=== PATIENT | male | born 1990 | race Caucasian/White ===

== ENCOUNTER 2025-01-15 21:33 | Emergency (ER) | payer OTHER ==
--- OUTSIDE RECORDS SUMMARY | 2025-01-15 21:37 | XMS REPORT | Continuity of Care Document ---
Author Name Unknown Address [address] [facility] [address] [place] [address] [facility] Address [address] [facility] [place] [address] Care Team Providers Care Registry Nurse Name Role Phone Tj Oneilal Primary Care Physician Unavailab Surya Paula Attending Clinician Unavailable Doctor Unassigned, Frederika Attending Clinician U DONY Enriquez Attending Clinician Lilly Gray MD Attending Clinician Dony Botello MD Attending Clinician Doctor Unassigned, Frederika Attending Clinician U Verito Vázquez MD Attending Clinician [phone] VERITO GARCIA Attending Clinician Unavailable EDDIE POWELL Attending Clinician UnavailEddie Zuniga MD Attending Clinician [phone] Payers Payer Name Policy Type Policy Number Effective Date Expirati on Date Source [facility] 53 [id number] 2023 00:00:00 [facility] Problems Condition Name Condition Details Condition Category Status Onset Date Resolution Date Last Treatment Date Treating Clinician Comments Source [id number] Tobacco use disorder, continuous Problem [facility] [id number] Type 2 diabetes mellitus with hyperglyce anoop, without long-term current use of insulin Problem [facility] [id number] Migraine without aura and without status migrainosu s, not intractabl e Problem [facility] [id number] Depression with anxiety Problem [facility] [id number] Body mass index [BMI] 32.0-32.9, adult Problem [facility] [id number] Essential (primary) hypertensi on Problem [facility] [id number] Tourette syndrome Problem [facility] [id number] Other obesity due to excess calories Problem [facility] [id number] Intellectu al disability Problem [facility] [id number] Mixed hyperlipid emia Problem [facility] Allergies, Adverse Reactions, Alerts Allergy Name Allergy Type Status Severity Reaction(s) Onset Date Inactive Date Treating Clinician Comments Source NO KNOWN ALLERGIE S Drug Class Active [facility] Social History Social Habit Start Date Stop Date Quantity Comments Source History of Tobacco Use Current Smoker [facility] Sexual orientation U [facility] History of Social function 2024-01-05 00:00:00 2024-01-05 00:00:00 [facility] Sex assigned at 1990 00:00:00 1990 00:00:00 [facility] Smoking Status Start Date Stop Date Source Tobacco smoking consumption unknown [facility] Current Smoker 2024-12-30 00:00:00 [facility] Medications Ordered Medication Name Filled Medication Name Start Date Stop Date Current Medication? Ordering Clinician Indication Dosage Frequency Signature (SIG) Comments Components Source Triamcinolo ne Acetonide 0.1 % Triamcinolo ne Acetonide 0.1 % 18 00:00: 00 No 1{appli cation} BID Triamcinol one Acetonide 0.1 % Simvastatin 20 MG Simvastatin 20 MG No 1{table t_in_th e_eveni ng} QD Simvastati n 20 MG metFORMIN HCl 1000 MG metFORMIN HCl 1000 MG No 1{table t_with_ a_meal} BID metFORMIN HCl 1000 MG Lisinopril 5 MG Lisinopril 5 MG No 1{table t} QD Lisinopril 5 MG Sertraline HCl 100 MG Sertraline HCl 100 MG No 1{table t} QD Sertraline HCl 100 MG Immunizations Ordered Immunization Name Filled Immunization Name Date Status Comments Source Boostrix (Tdap) Boostrix (Tdap) 2022-06-20 14:56:00 Completed [facility] Boostrix (Tdap) Boostrix (Tdap) 2022-06-20 14:56:00 Completed [facility] Boostrix (Tdap) Boostrix (Tdap) 2022-06-20 14:56:00 Completed [facility] Flucelvax - single dose syringe Flucelvax - single dose syringe 2022-06-20 14:55:00 Completed [facility] Flucelvax - single dose syringe Flucelvax - single dose syringe 2022-06-20 14:55:00 Completed [facility] Flucelvax - single dose syringe Flucelvax - single dose syringe 2022-06-20 14:55:00 Completed [facility] Flucelvax - multidose vial Flucelvax - multidose vial 2021-07-15 13:58:00 Completed [facility] Flucelvax - multidose vial Flucelvax - multidose vial 2021-07-15 13:58:00 Completed [facility] Flucelvax - multidose vial Flucelvax - multidose vial 2021-07-15 13:58:00 Completed [facility] Flucelvax - multidose vial Flucelvax - multidose vial Unknown Completed [facility] Flucelvax - single dose syringe Flucelvax - single dose syringe Unknown Completed [facility] Boostrix (Tdap) Boostrix (Tdap) Unknown Completed [facility] Flucelvax - multidose vial Flucelvax - multidose vial Unknown Completed [facility] Flucelvax - single dose syringe Flucelvax - single dose syringe Unknown Completed [facility] Boostrix (Tdap) Boostrix (Tdap) Unknown Completed [facility] Flucelvax - multidose vial Flucelvax - multidose vial Unknown Completed [facility] Flucelvax - single dose syringe Flucelvax - single dose syringe Unknown Completed [facility] Boostrix (Tdap) Boostrix (Tdap) Unknown Completed [facility] Flucelvax - multidose vial Flucelvax - multidose vial Unknown Completed [facility] Flucelvax - single dose syringe Flucelvax - single dose syringe Unknown Completed [facility] Boostrix (Tdap) Boostrix (Tdap) Unknown Completed [facility] Flucelvax - multidose vial Flucelvax - multidose vial Unknown Completed [facility] Flucelvax - single dose syringe Flucelvax - single dose syringe Unknown Completed [facility] Boostrix (Tdap) Boostrix (Tdap) Unknown Completed [facility] Flucelvax - multidose vial Flucelvax - multidose vial Unknown Completed [facility] Flucelvax - single dose syringe Flucelvax - single dose syringe Unknown Completed [facility] Boostrix (Tdap) Boostrix (Tdap) Unknown Completed [facility] Flucelvax (ccIIV4) - MDV - 0.5mL Flucelvax (ccIIV4) - MDV - 0.5mL Unknown Completed [facility] Flucelvax (ccIIV4) - SDS - 0.5mL Flucelvax (ccIIV4) - SDS - 0.5mL Unknown Completed [facility] Boostrix (Tdap) Boostrix (Tdap) Unknown Completed [facility] Flucelvax (ccIIV4) - MDV - 0.5mL Flucelvax (ccIIV4) - MDV - 0.5mL Unknown Completed [facility] Flucelvax (ccIIV4) - SDS - 0.5mL Flucelvax (ccIIV4) - SDS - 0.5mL Unknown Completed [facility] Boostrix (Tdap) Boostrix (Tdap) Unknown Completed [facility] Flucelvax (ccIIV4) - MDV - 0.5mL Flucelvax (ccIIV4) - MDV - 0.5mL Unknown Completed [facility] Flucelvax (ccIIV4) - SDS - 0.5mL Flucelvax (ccIIV4) - SDS - 0.5mL Unknown Completed [facility] Boostrix (Tdap) Boostrix (Tdap) Unknown Completed [facility] Flucelvax (ccIIV4) - MDV - 0.5mL Flucelvax (ccIIV4) - MDV - 0.5mL Unknown Completed [facility] Flucelvax (ccIIV4) - SDS - 0.5mL Flucelvax (ccIIV4) - SDS - 0.5mL Unknown Completed [facility] Boostrix (Tdap) Boostrix (Tdap) Unknown Completed [facility] Flucelvax (ccIIV4) - MDV - 0.5mL Flucelvax (ccIIV4) - MDV - 0.5mL Unknown Completed [facility] Flucelvax (ccIIV4) - SDS - 0.5mL Flucelvax (ccIIV4) - SDS - 0.5mL Unknown Completed [facility] Boostrix (Tdap) Boostrix (Tdap) Unknown Completed [facility] Flucelvax (ccIIV4) - MDV - 0.5mL Flucelvax (ccIIV4) - MDV - 0.5mL Unknown Completed [facility] Flucelvax (ccIIV4) - SDS - 0.5mL Flucelvax (ccIIV4) - SDS - 0.5mL Unknown Completed [facility] Boostrix (Tdap) Boostrix (Tdap) Unknown Completed [facility] Flucelvax (ccIIV4) - MDV - 0.5mL Flucelvax (ccIIV4) - MDV - 0.5mL Unknown Completed [facility] Flucelvax (ccIIV4) - SDS - 0.5mL Flucelvax (ccIIV4) - SDS - 0.5mL Unknown Completed [facility] Boostrix (Tdap) Boostrix (Tdap) Unknown Completed [facility] Fluarix (IIV3) - SDS - 0.5mL Fluarix (IIV3) - SDS - 0.5mL Unknown Completed [facility] Vital Signs Vital Name Observation Time Observation Value Comments S ource height 2024-08-24 15:00:00 68.5 [in_i] Comm on [facility] weight 2024-08-24 15:00:00 237.2 [lb_av] Co mmon [facility] temperature 2024-08-24 15:00:00 96.7 [degF] Com mon [facility] bmi 2024-08-24 15:00:00 35.54 kg/m2 Comm on [facility] oximetry 2024-08-24 15:00:00 98 % Commo n [facility] respiratory rate 2024-08-24 15:00:00 18 /min [facility] blood pressure systolic 2024-08-24 15:00:00 136 mm[Hg] [facility] blood pressure diastolic 2024-08-24 15:00:00 82 mm[Hg] [facility] height 2024-04-20 15:40:00 68.5 [in_i] Comm on [facility] weight 2024-04-20 15:40:00 233 [lb_av] Comm on [facility] temperature 2024-04-20 15:40:00 97.3 [degF] Com mon [facility] bmi 2024-04-20 15:40:00 34.91 kg/m2 Comm on [facility] oximetry 2024-04-20 15:40:00 97 % Commo n [facility] blood pressure systolic 2024-04-20 15:40:00 132 mm[Hg] [facility] blood pressure diastolic 2024-04-20 15:40:00 78 mm[Hg] [facility] height 2024-04-20 15:40:00 68.5 [in_i] Comm on [facility] weight 2024-04-20 15:40:00 233 [lb_av] Comm on [facility] temperature 2024-04-20 15:40:00 97.3 [degF] Com mon [facility] bmi 2024-04-20 15:40:00 34.91 kg/m2 Comm on [facility] oximetry 2024-04-20 15:40:00 97 % Commo n [facility] blood pressure systolic 2024-04-20 15:40:00 132 mm[Hg] [facility] blood pressure diastolic 2024-04-20 15:40:00 78 mm[Hg] [facility] Body height 2024-03-11 16:03:00 180.3 cm [facility] Body weight 2024-03-11 16:03:00 102.059 kg [facility] BMI 2024-03-11 16:03:00 31.38 kg/m2 [facility] Body height 2023-12-16 19:54:00 180.3 cm [facility] height 2023-12-11 15:20:00 68.5 [in_i] Comm on [facility] weight 2023-12-11 15:20:00 235.0 [lb_av] Co mmon [facility] temperature 2023-12-11 15:20:00 97.8 [degF] Com mon [facility] bmi 2023-12-11 15:20:00 35.21 kg/m2 Comm on [facility] oximetry 2023-12-11 15:20:00 97 % Commo n [facility] respiratory rate 2023-12-11 15:20:00 18 /min [facility] blood pressure systolic 2023-12-11 15:20:00 128 mm[Hg] [facility] blood pressure diastolic 2023-12-11 15:20:00 72 mm[Hg] [facility] height 2023-08-12 08:20:00 68.5 [in_i] Comm on [facility] weight 2023-08-12 08:20:00 230 [lb_av] Comm on [facility] bmi 2023-08-12 08:20:00 34.46 kg/m2 Comm on [facility] blood pressure systolic 2023-08-12 08:20:00 129 mm[Hg] [facility] blood pressure diastolic 2023-08-12 08:20:00 70 mm[Hg] [facility] height 2023-06-02 08:20:00 68.5 [in_i] Comm on [facility] weight 2023-06-02 08:20:00 231.6 [lb_av] Co mmon [facility] temperature 2023-06-02 08:20:00 98.0 [degF] Com mon [facility] bmi 2023-06-02 08:20:00 34.7 kg/m2 Commo n [facility] oximetry 2023-06-02 08:20:00 97 % Commo n [facility] respiratory rate 2023-06-02 08:20:00 18 /min [facility] blood pressure systolic 2023-06-02 08:20:00 109 mm[Hg] [facility] blood pressure diastolic 2023-06-02 08:20:00 66 mm[Hg] [facility] height 2023-03-25 16:20:00 68.5 [in_i] Comm on [facility] weight 2023-03-25 16:20:00 224.0 [lb_av] Co mmon [facility] temperature 2023-03-25 16:20:00 97.3 [degF] Com mon [facility] bmi 2023-03-25 16:20:00 33.56 kg/m2 Comm on [facility] oximetry 2023-03-25 16:20:00 98 % Commo n [facility] respiratory rate 2023-03-25 16:20:00 18 /min [facility] blood pressure systolic 2023-03-25 16:20:00 125 mm[Hg] [facility] blood pressure diastolic 2023-03-25 16:20:00 69 mm[Hg] [facility] height 2023-03-06 13:00:00 68.5 [in_i] Comm on [facility] weight 2023-03-06 13:00:00 230 [lb_av] Comm on [facility] temperature 2023-03-06 13:00:00 98 [degF] Comm on [facility] bmi 2023-03-06 13:00:00 34.46 kg/m2 Comm on [facility] blood pressure systolic 2023-03-06 13:00:00 132 mm[Hg] [facility] blood pressure diastolic 2023-03-06 13:00:00 72 mm[Hg] [facility] height 2022-12-24 16:10:00 68.5 [in_i] Comm on [facility] weight 2022-12-24 16:10:00 229.8 [lb_av] Co on [facility] temperature 2022-12-24 16:10:00 96.6 [degF] Com [facility] bmi 2022-12-24 16:10:00 34.43 kg/m2 Comm on [facility] oximetry 2022-12-24 16:10:00 96 % Commo n [facility] respiratory rate 2022-12-24 16:10:00 16 /min Common [facility] blood pressure systolic 2022-12-24 16:10:00 130 mm[Hg] [facility] blood pressure diastolic 2022-12-24 16:10:00 87 mm[Hg] [facility] height 2022-09-04 15:30:00 68.5 [in_i] Comm on [facility] weight 2022-09-04 15:30:00 234.2 [lb_av] Co on [facility] temperature 2022-09-04 15:30:00 97.2 [degF] Com [facility] bmi 2022-09-04 15:30:00 35.09 kg/m2 Comm on [facility] oximetry 2022-09-04 15:30:00 96 % Commo n [facility] respiratory rate 2022-09-04 15:30:00 17 /min Common [facility] blood pressure systolic 2022-09-04 15:30:00 129 mm[Hg] [facility] blood pressure diastolic 2022-09-04 15:30:00 69 mm[Hg] [facility] height 2022-06-20 15:10:00 68.5 [in_i] Comm on [facility] weight 2022-06-20 15:10:00 232 [lb_av] Comm on [facility] temperature 2022-06-20 15:10:00 97.7 [degF] Com mon [facility] bmi 2022-06-20 15:10:00 34.76 kg/m2 Comm on [facility] oximetry 2022-06-20 15:10:00 96 % Commo n [facility] respiratory rate 2022-06-20 15:10:00 18 /min Common [facility] blood pressure systolic 2022-06-20 15:10:00 121 mm[Hg] [facility] blood pressure diastolic 2022-06-20 15:10:00 76 mm[Hg] [facility] height 2022-04-18 13:30:00 70.50 [in_i] Com [facility] weight 2022-04-18 13:30:00 232.3 [lb_av] Co mmon [facility] temperature 2022-04-18 13:30:00 98.1 [degF] Com mon [facility] bmi 2022-04-18 13:30:00 32.86 kg/m2 Comm on [facility] oximetry 2022-04-18 13:30:00 92 % Commo n [facility] respiratory rate 2022-04-18 13:30:00 16 /min [facility] blood pressure systolic 2022-04-18 13:30:00 118 mm[Hg] [facility] blood pressure diastolic 2022-04-18 13:30:00 82 mm[Hg] [facility] Procedures Procedure Date / Time Performed Performing Clinicia n Source REFERRAL- REQUEST/RESPONSE 2023-12-16 00:31:32 Doctor Unassigned, Frederika [facility] Encounters Start Date/Time End Date/Time Encounter Type Admission Type Attending [facility] Care Facility Care Department Encounter ID Source 2023-12-10 14:58:00 Outpatient Surya Oneil [facility] [id number] [facility] 2023-08-11 14:47:01 Outpatient Oneil, Surya [facility] [id number] [facility] 2023-05-30 12:01:00 Outpatient Oneil, Surya [facility] [id number] [facility] 2023-01-01 15:14:01 Outpatient Oneil, Surya [facility] [id number] [facility] 2022-12-24 15:57:00 Outpatient Oneil, Surya [facility]C [facility] [id number] [facility] 2022-09-03 14:50:02 Outpatient Oneil, Surya [facility] [id number] [facility] 2022-09-02 10:21:03 Outpatient Oneil, Surya [facility] [id number] [facility] 2022-08-29 10:31:05 Outpatient Oneil, Surya [facility] [id number] [facility] 2022-06-28 10:01:01 Outpatient Oneil, Surya [facility] [id number] [facility] 2022-06-21 15:40:04 Outpatient Oneil, Surya [facility] [id number] [facility] 2022-04-19 10:44:03 Outpatient Oneil, Surya [facility] [id number] [facility] 2022-04-18 13:06:03 Outpatient Oneil, Surya [facility]C [facility] [id number] [facility] 2025-01-03 00:00:00 2025-01-03 00:00:00 (TEL) STLMLC STLMLC [id number] [facility] 2023-12-15 00:00:00 2024-10-30 02:31:08 Orders Only Doctor Unassigned, Frederika Doctor Unassigned, Frederika [facility] 1.0.114 350.1.13.10 [id number] [id number] [facility] 2024-08-24 00:00:00 2024-08-24 00:00:00 OFFICE VISIT ESTAB PT LEVEL 4 [facility] [id number] [facility] 2024-04-20 00:00:00 2024-04-20 00:00:00 OFFICE VISIT ESTAB PT LEVEL 4 [facility] [id number] [facility] 2024-03-11 11:15:00 2024-03-11 11:15:17 Outpatient R DONY BOTELLO [facility] [id number] [facility] 2024-03-11 11:15:00 2024-03-11 11:15:17 Office Visit Lilly Sanders Ayezel [facility] 1.114 350.1.13.10 [id number] [id number] [facility] 2023-12-22 00:00:00 2024-01-24 18:10:12 Patient Secure Msg Doctor Unassigned, Frederika [facility] 1..114 350.1.13.10 [id number] [id number] [facility] 2023-12-23 00:00:00 2024-01-24 18:08:18 Patient Secure Msg Doctor Unassigned, Frederika [facility] 1.0.114 350.1.13.10 4.2.7.2.686 [id number] [facility] 2024-01-05 09:00:00 2024-01-05 09:53:48 Office Visit Lilly Sanders Erica [facility] 1.0.114 350.1.13.10 4.2.7.2.686 [id number] [facility] 2024-01-05 09:00:00 2024-01-05 09:53:48 Outpatient VERITO PEPE [facility] [id number] [facility] 2023-12-23 00:00:00 2023-12-23 00:00:00 Telephone Lilly Sanders [facility] 1.840.114 350.1.13.10 4.2.7.2.686 [id number] [facility] 2023-12-16 14:45:00 2023-12-16 15:18:23 Outpatient EDDIE BECK [facility] [id number] [facility] 2023-12-16 14:45:00 2023-12-16 15:18:23 Office Visit Lilly Sanders Brandon P [facility] 1..840.114 350.1.13.10 4.2.7.2.686 [id number] [facility] 2023-12-11 00:00:00 2023-12-11 00:00:00 OFFICE VISIT ESTAB PT LEVEL [id number] [facility] 2023-12-11 00:00:00 2023-12-11 00:00:00 (TEL) STLMLC STLMLC [id number] [facility] 2023-10-15 00:00:00 2023-10-15 00:00:00 (TEL) [facility]LMLC STLMLC [id number] [facility] 2023-08-12 00:00:00 2023-08-12 00:00:00 OFFICE VISIT ESTAB PT LEVEL [id number] [facility] 2023-06-02 00:00:00 2023-06-02 00:00:00 OFFICE VISIT ESTAB PT LEVEL 4 [facility]LMLC STLMLC [id number] [facility] 2023-05-26 00:00:00 2023-05-26 00:00:00 (TEL) STLMLC STLMLC [id number] [facility] 2023-03-25 00:00:00 2023-03-25 00:00:00 OFFICE VISIT ESTAB PT LEVEL 4 [facility]LMLC STLMLC [id number] [facility] 2023-03-06 00:00:00 2023-03-06 00:00:00 (TEL) STLMLC STLMLC [id number] [facility] 2023-03-06 00:00:00 2023-03-06 00:00:00 OFFICE VISIT ESTAB PT LEVEL 4 STLMLC STLMLC [id number] [facility] 2023-01-14 00:00:00 2023-01-14 00:00:00 (TEL) STLMLC STLMLC [id number] [facility] 2023-01-01 00:00:00 2023-01-01 00:00:00 (TEL) STLMLC STLMLC [id number] [facility] 2022-12-24 00:00:00 2022-12-24 00:00:00 OFFICE VISIT ESTAB PT LEVEL 4 [facility]LMLC STLMLC [id number] [facility] 2022-09-04 00:00:00 2022-09-04 00:00:00 OFFICE VISIT ESTAB PT LEVEL 4 [facility]LMLC STLMLC [id number] [facility] 2022-06-20 00:00:00 2022-06-20 00:00:00 (WELLNESS) Wellness Visit STLMLC STLMLC [id number] [facility] 2022-04-18 00:00:00 2022-04-18 00:00:00 OFFICE VISIT NEW PT LEVEL 4 STLMLC STLMLC [id number] [facility] Results Test Description Test Time Test Comments Results Result Co mments Source CBC W/AUTO [id number] 00:00:00* Test Item Value Reference Range Interpretation Comme nts NUCLEATED RBCS (test code = 22339-9) 0.0 /100 WBC'S See_Comment [Automated messa ge] The system which generated this result transmitted reference range: 0.0 /100 WBC'S. The reference range was not used to interpret this result as normal/abnormal. ABSOLUTE EOSINOPHILS (test code = 51214-3) 0.25 K/UL See_Comment [Automated messa ge] The system which generated this result transmitted reference range: 0.00-0.50 K/UL. The reference range was not used to interpret this result as normal/abnormal. ABSOLUTE LYMPHOCYTES (test code = 05955-5) 2.18 K/UL See_Comment [Automated messa ge] The system which generated this result transmitted reference range: 1.00-4.00 K/UL. The reference range was not used to interpret this result as normal/abnormal. ABSOLUTE MONOCYTES (test code = 12139-6) 0.55 K/UL See_Comment [Automated messa ge] The system which generated this result transmitted reference range: 0.20-1.00 K/UL. The reference range was not used to interpret this result as normal/abnormal. ABSOLUTE NEUTROPHILS (test code = 41252-6) 5.65 K/UL See_Comment [Automated messa ge] The system which generated this result transmitted reference range: 1.50-7.50 K/UL. The reference range was not used to interpret this result as normal/abnormal. BASOPHILS (test code = 53924-6) 0.7 % EOSINOPHILS (test code = 83219-0) 2.9 % HEMATOCRIT (test code = 52334-2) 43.6 % See_Comment [Automated messa ge] The system which generated this result transmitted reference range: 40.0-51.0 %. The reference range was not used to interpret this result as normal/abnormal. HEMOGLOBIN (test code = 718-7) 14.5 G/DL See_Comment [Automated messa ge] The system which generated this result transmitted reference range: 13.5-17.0 G/DL. The reference range was not used to interpret this result as normal/abnormal. LYMPHOCYTES (test code = 70621-3) 24.9 % MCH (test code = 07188-6) 28.9 PG See_Comment [Automated messa ge] The system which generated this result transmitted reference range: 25.0-33.0 PG. The reference range was not used to interpret this result as normal/abnormal. MCHC (test code = 18234-9) 33.3 G/DL See_Comment [Automated messa ge] The system which generated this result transmitted reference range: 31.0-36.0 G/DL. The reference range was not used to interpret this result as normal/abnormal. MCV (test code = 16300-8) 87.0 fL See_Comment [Automated messa ge] The system which generated this result transmitted reference range: 80.0-99.0 fL. The reference range was not used to interpret this result as normal/abnormal. MONOCYTES (test code = 87165-1) 6.3 % NEUTROPHILS (test code = 53317-5) 64.3 % PLATELET COUNT (test code = 17334-8) 196 K/UL See_Comment [Automated messa ge] The system which generated this result transmitted reference range: 130-400 K/UL. The reference range was not used to interpret this result as normal/abnormal. RBC (test code = 96061-6) 5.01 M/UL See_Comment [Automated messa ge] The system which generated this result transmitted reference range: 4.50-6.10 M/UL. The reference range was not used to interpret this result as normal/abnormal. RDW (test code = 64112-6) 13.3 % See_Comment [Automated messa ge] The system which generated this result transmitted reference range: 11.5-15.0 %. The reference range was not used to interpret this result as normal/abnormal. WBC (test code = 41975-9) 8.8 K/UL See_Comment [Automated messa ge] The system which generated this result transmitted reference range: 3.5-11.0 K/UL. The reference range was not used to interpret this result as normal/abnormal. REFERRAL- REQUEST/[id number] 00:31:32Ordered by an unspecified provider. [facility] W/AUTO [id number] 00:00:00* Test Item Value Reference Range Interpretation Comme nts NUCLEATED RBCS (test code = 72030-5) 0.0 /100 WBC'S See_Comment [Automated messa ge] The system which generated this result transmitted reference range: 0.0 /100 WBC'S. The reference range was not used to interpret this result as normal/abnormal. ABSOLUTE EOSINOPHILS (test code = 16494-3) 0.20 K/UL See_Comment [Automated messa ge] The system which generated this result transmitted reference range: 0.00-0.50 K/UL. The reference range was not used to interpret this result as normal/abnormal. ABSOLUTE LYMPHOCYTES (test code = 89614-9) 1.65 K/UL See_Comment [Automated messa ge] The system which generated this result transmitted reference range: 1.00-4.00 K/UL. The reference range was not used to interpret this result as normal/abnormal. ABSOLUTE MONOCYTES (test code = 79377-9) 0.49 K/UL See_Comment [Automated messa ge] The system which generated this result transmitted reference range: 0.20-1.00 K/UL. The reference range was not used to interpret this result as normal/abnormal. ABSOLUTE NEUTROPHILS (test code = 92885-2) 6.01 K/UL See_Comment [Automated messa ge] The system which generated this result transmitted reference range: 1.50-7.50 K/UL. The reference range was not used to interpret this result as normal/abnormal. BASOPHILS (test code = 80806-7) 0.5 % EOSINOPHILS (test code = 25258-4) 2.4 % HEMATOCRIT (test code = 85320-8) 44.3 % See_Comment [Automated messa ge] The system which generated this result transmitted reference range: 40.0-51.0 %. The reference range was not used to interpret this result as normal/abnormal. HEMOGLOBIN (test code = 718-7) 14.8 G/DL See_Comment [Automated messa ge] The system which generated this result transmitted reference range: 13.5-17.0 G/DL. The reference range was not used to interpret this result as normal/abnormal. LYMPHOCYTES (test code = 58180-0) 19.5 % MCH (test code = 64650-0) 29.8 PG See_Comment [Automated messa ge] The system which generated this result transmitted reference range: 25.0-33.0 PG. The reference range was not used to interpret this result as normal/abnormal. MCHC (test code = 47822-2) 33.4 G/DL See_Comment [Automated messa ge] The system which generated this result transmitted reference range: 31.0-36.0 G/DL. The reference range was not used to interpret this result as normal/abnormal. MCV (test code = 68856-5) 89.3 fL See_Comment [Automated messa ge] The system which generated this result transmitted reference range: 80.0-99.0 fL. The reference range was not used to interpret this result as normal/abnormal. MONOCYTES (test code = 65345-1) 5.8 % NEUTROPHILS (test code = 01842-4) 70.9 % PLATELET COUNT (test code = 17444-8) 190 K/UL See_Comment [Automated messa ge] The system which generated this result transmitted reference range: 130-400 K/UL. The reference range was not used to interpret this result as normal/abnormal. RBC (test code = 31619-5) 4.96 M/UL See_Comment [Automated messa ge] The system which generated this result transmitted reference range: 4.50-6.10 M/UL. The reference range was not used to interpret this result as normal/abnormal. RDW (test code = 20566-3) 13.0 % See_Comment [Automated messa ge] The system which generated this result transmitted reference range: 11.5-15.0 %. The reference range was not used to interpret this result as normal/abnormal. WBC (test code = 76683-3) 8.5 K/UL See_Comment [Automated messa ge] The system which generated this result transmitted reference range: 3.5-11.0 K/UL. The reference range was not used to interpret this result as normal/abnormal. CBC W/AUTO [id number] 00:00:00* Test Item Value Reference Range Interpretation Comme nts NUCLEATED RBCS (test code = 71249-1) 0.0 /100 WBC'S See_Comment [Automated messa ge] The system which generated this result transmitted reference range: 0.0 /100 WBC'S. The reference range was not used to interpret this result as normal/abnormal. ABSOLUTE EOSINOPHILS (test code = 93960-7) 0.23 K/UL See_Comment [Automated messa ge] The system which generated this result transmitted reference range: 0.00-0.50 K/UL. The reference range was not used to interpret this result as normal/abnormal. ABSOLUTE LYMPHOCYTES (test code = 29112-0) 2.42 K/UL See_Comment [Automated messa ge] The system which generated this result transmitted reference range: 1.00-4.00 K/UL. The reference range was not used to interpret this result as normal/abnormal. ABSOLUTE MONOCYTES (test code = 14960-7) 0.67 K/UL See_Comment [Automated messa ge] The system which generated this result transmitted reference range: 0.20-1.00 K/UL. The reference range was not used to interpret this result as normal/abnormal. ABSOLUTE NEUTROPHILS (test code = 49719-4) 6.66 K/UL See_Comment [Automated messa ge] The system which generated this result transmitted reference range: 1.50-7.50 K/UL. The reference range was not used to interpret this result as normal/abnormal. BASOPHILS (test code = 14022-2) 0.8 % EOSINOPHILS (test code = 37006-2) 2.3 % HEMATOCRIT (test code = 63800-6) 45.4 % See_Comment [Automated messa ge] The system which generated this result transmitted reference range: 40.0-51.0 %. The reference range was not used to interpret this result as normal/abnormal. HEMOGLOBIN (test code = 718-7) 15.4 G/DL See_Comment [Automated messa ge] The system which generated this result transmitted reference range: 13.5-17.0 G/DL. The reference range was not used to interpret this result as normal/abnormal. LYMPHOCYTES (test code = 73931-4) 23.9 % MCH (test code = 13021-0) 30.3 PG See_Comment [Automated messa ge] The system which generated this result transmitted reference range: 25.0-33.0 PG. The reference range was not used to interpret this result as normal/abnormal. MCHC (test code = 09658-3) 33.9 G/DL See_Comment [Automated messa ge] The system which generated this result transmitted reference range: 31.0-36.0 G/DL. The reference range was not used to interpret this result as normal/abnormal. MCV (test code = 70706-6) 89.4 fL See_Comment [Automated messa ge] The system which generated this result transmitted reference range: 80.0-99.0 fL. The reference range was not used to interpret this result as normal/abnormal. MONOCYTES (test code = 12084-0) 6.6 % NEUTROPHILS (test code = 44372-0) 65.7 % PLATELET COUNT (test code = 12861-5) 199 K/UL See_Comment [Automated messa ge] The system which generated this result transmitted reference range: 130-400 K/UL. The reference range was not used to interpret this result as normal/abnormal. RBC (test code = 95388-2) 5.08 M/UL See_Comment [Automated messa ge] The system which generated this result transmitted reference range: 4.50-6.10 M/UL. The reference range was not used to interpret this result as normal/abnormal. RDW (test code = 12647-5) 12.8 % See_Comment [Automated messa ge] The system which generated this result transmitted reference range: 11.5-15.0 %. The reference range was not used to interpret this result as normal/abnormal. WBC (test code = 41879-0) 10.1 K/UL See_Comment [Automated messa ge] The system which generated this result transmitted reference range: 3.5-11.0 K/UL. The reference range was not used to interpret this result as normal/abnormal. Notes Date/Time Note Provider Source 2023-12-23 12:50:29 Error. [place]
[2025-01-15 23:42] LABS: Glomerular Filtration Rate 94 ml/min (=/>90)
[2025-01-15 23:43] LABS: Albumin/Globulin Ratio 1.1 (1.1-1.8); Globulin 3.7 g/dL (2.3-3.5)
[2025-01-15 23:53] LABS: Hemoglobin 15.6 g/dL (13.6-17.9); MCH 29.9 pg (27.0-35.0); MCHC 35.4 g/dL (32.0-36.0); MCV 84.4 fL (80-100); Platelets 215 thou/uL (152-406); RBC Red Blood Cell Count 5.22 M/uL (4.33-5.43); Red Cell Distribution Width 13.8 % (12.1-15.2)
[2025-01-15 23:54] LABS: Basophils % 0.6 % (0-1.3); Eosinophils % 2.7 % (0-4.4); MPV 8.9 fL (7.6-11.3); Monocytes % 5.4 % (3.3-12.3); Neutrophils % 70.3 % (41.7-73.7); Nucleated Red Blood Cells % 0.1 % (0-0)
[2025-01-15 23:58] LABS: Absolute Eosinophils 2.7 K/uL (0-0.5); Absolute Monocytes 5.4 K/uL (0.1-1.3); Absolute Neutrophil 70.3 K/uL (1.8-8.0)
[2025-01-15 23:59] LABS: Absolute Basophils 0.6 K/uL (0-0.5); Nucleated RBC Absolute Count 0.1 (0-0)
--- NOTE | 2025-01-16 00:02 | EDPHYS ---
Physician Documentation [facility] Name: Bennett Chauhan Age: 34 yrs Sex: Male : 1990 Arrival Date: 01/15/2025 Time: 21:33 Bed 3 Private MD: ED Physician Ousmane Leahy HPI: 01/15 23:11 This 34 yrs old Male presents to ER via Ambulatory with complaints of Palpitations. rt 23:11 Patient presents to the ED with palpitations starting this morning. States that they rt have been present all day. States that he has had the symptoms intermittently for some time now. Denies other acute complaints at this time, symptoms are moderate in severity, no other aggravating or alleviating factors.. Historical: - Allergies: 21:57 No Known Allergies; cm10 - Home Meds: 21:57 metformin 1,000 mg oral tablet 1 tab 2 times per day with meals [Active]; sertraline cm10 100 mg oral tablet 1 tab daily [Active]; simvastatin 20 mg oral tablet 1 tab every evening [Active]; lisinopril 5 mg oral tablet 1 tab daily [Active]; - PMHx: 21:57 Anxiety; diabetes mellitus; Hypertensive disorder; cm10 - Immunization history:: Adult Immunizations up to date. - Infectious Disease History:: Denies. - Social history:: Smoking status: unknown. - Family history:: not pertinent. ROS: 23:11 Constitutional: Negative for fever, chills, and weight loss, Respiratory: Negative for rt shortness of breath, cough, wheezing, and pleuritic chest pain, Abdomen/GI: Negative for abdominal pain, nausea, vomiting, diarrhea, and constipation, MS/Extremity: Negative for injury and deformity, Skin: Negative for injury, rash, and discoloration, Neuro: Negative for headache, weakness, numbness, tingling, and seizure, 23:11 Cardiovascular: Positive for palpitations, Negative for chest pain, Exam: 23:11 Constitutional: This is a well developed, well nourished patient who is awake, alert, rt and in no acute distress. Head/Face: Normocephalic, atraumatic. Chest/axilla: Normal chest wall appearance and motion. Nontender with no deformity. No lesions are appreciated. Cardiovascular: Regular rate and rhythm with a normal S1 and S2. No gallops, murmurs, or rubs. Normal PMI, no JVD. No pulse deficits. Respiratory: Lungs have equal breath sounds bilaterally, clear to auscultation and percussion. No rales, rhonchi or wheezes noted. No increased work of breathing, no retractions or nasal flaring. Abdomen/GI: Soft, non-tender, with normal bowel sounds. No distension or tympany. No guarding or rebound. No evidence of tenderness throughout. Skin: Warm, dry with normal turgor. Normal color with no rashes, no lesions, and no evidence of cellulitis. MS/ Extremity: Pulses equal, no cyanosis. Neurovascular intact. Full, normal range of motion. Neuro: Awake and alert, GCS 15, oriented to person, place, time, and situation. Cranial nerves II-XII grossly intact. Motor strength 5/5 in all extremities. Sensory grossly intact. Cerebellar exam normal. Normal gait. 23:11 ECG was reviewed by the Attending Physician. Vital Signs: 21:57 BP 125 / 90; Pulse 99; Resp 18; Temp 98.5; Pulse Ox 97% on R/A; Weight 102.06 kg; cm10 Height 5 ft. 11 in. ; Pain 0/10; 22:45 BP 120 / 84; Pulse 89; Resp 17 S; Pulse Ox 99% on R/A; ha1 23:50 BP 104 / 77; Pulse 91; Resp 14; Pulse Ox 97% ; vc1 01/16 00:37 BP 115 / 88; Pulse 87; Resp 18 S; Pulse Ox 97% on R/A; ha1 01/15 21:57 Body Mass Index 31.38 (102.06 kg, 180.34 cm) cm10 01/15 21:57 Pain Scale: Adult cm10 MDM: 01/15 22:04 Medical Screening Exam initiated rt 01/16 01:39 Differential diagnosis: Palpitations, dysrhythmia, thyrotoxicosis, electrolyte rt disturbance. Data reviewed: vital signs, nurses notes, lab test result(s), EKG. Test considered but Not performed: CT: Low suspicion for pulmonary embolus, CT angiogram not indicated. Care significantly affected by the following chronic conditions: Diabetes, Hypertension. Counseling: I had a detailed discussion with the patient and/or guardian regarding the historical points, exam findings, and any diagnostic results supporting the discharge/admit diagnosis, lab results, the need for outpatient follow up, to return to the emergency department if symptoms worsen or persist or if there are any questions or concerns that arise at home. Response to treatment: the patient's symptoms have markedly improved after treatment. 01/15 22:05 Order name: Basic Metabolic Panel rt 01/15 22:05 Order name: CBC with Diff; Complete Time: 00:00 rt 01/15 22:05 Order name: LFT's rt 01/15 22:05 Order name: Magnesium rt 01/15 22:05 Order name: Troponin HS rt 01/15 22:05 Order name: TSH rt 01/15 22:05 Order name: EKG; Complete Time: 22:05 rt 01/15 22:05 Order name: Cardiac monitoring; Complete Time: 23:10 rt 01/15 22:05 Order name: EKG - Nurse/Tech; Complete Time: 23:10 rt 01/15 22:05 Order name: IV Saline Lock; Complete Time: 23:10 rt 01/15 22:05 Order name: Labs collected and sent; Complete Time: 23:10 rt 01/15 22:05 Order name: O2 Per Protocol; Complete Time: 23:10 rt 01/15 22:05 Order name: O2 Sat Monitoring; Complete Time: 23:11 rt EC/03 23:11 Rate is 98 beats/min. Rhythm is regular, Normal Sinus Rhythm with No ectopy. QRS [place] rt is Normal. [place] interval is normal. QRS interval is normal. QT interval is normal. No Q waves. T waves are Normal. No ST changes noted. Interpreted by me. Administered Medications: No medications were administered Disposition Summary: 01/16/25 00:02 Discharge Ordered Notes: Location: Home rt Problem: new rt Symptoms: have improved rt Condition: Stable rt Diagnosis - Palpitations rt Followup: rt - With: Private Physician - When: 2 - 3 days - Reason: Discharge Instructions: - Discharge Summary Sheet rt - Palpitations rt Forms: - Medication Reconciliation Form rt - Antibiotic Education rt - Prescription Opioid Use rt - Patient Portal Instructions rt - Leadership Thank You Letter rt Signatures: Dispatcher [employer] EDOusmane Borden MD MD rt Emilia Caro RN RN cm10 Corrections: (The following items were deleted from the chart) 22:05 22:05 BASIC METABOLIC PANEL+C.LAB.BRZ ordered. EDMS EDMS 22:05 22:05 CBC+H.LAB.BRZ ordered. EDMS EDMS 22:05 22:05 HEPATIC FUNCTION+C.LAB.BRZ ordered. EDMS EDMS 22:05 22:05 MAGNESIUM+C.LAB.BRZ ordered. EDMS EDMS 22:05 22:05 Troponin High Sensitivity+C.LAB.BRZ ordered. EDMS EDMS 22:05 22:05 THYROID STIMULAT HORMONE+C.LAB.BRZ ordered. EDMS EDMS
--- NOTE | 2025-01-16 00:02 | ER ---
Nurse's Notes [facility] Name: Bennett Chauhan Age: 34 yrs Sex: Male : 1990 Arrival Date: 01/15/2025 Time: 21:33 Bed 3 Private MD: Diagnosis: Palpitations Presentation: 01/15 21:57 Chief complaint: Patient states: Increased anxiety onset today and palpitations. Denies cm10 pain. Coronavirus screen: Client denies travel out of the [place] in the last 14 days. Ebola Screen: No symptoms or risks identified at this time. Initial Sepsis Screen: Does the patient meet any 2 criteria? HR > 90 bpm. Does the patient have a suspected source of infection? No. Patient's initial sepsis screen is negative. Risk Assessment: Do you want to hurt yourself or someone else? Patient reports no desire to harm self or others. Onset of symptoms was January 15, 2025. 21:57 Method Of Arrival: Ambulatory cm10 21:57 Acuity: ALVERTO 3 cm10 Triage Assessment: 22:00 General: Appears in no apparent distress. comfortable, Behavior is anxious. Neuro: No cm10 deficits noted. Level of Consciousness is awake, alert, obeys commands, Oriented to person, place, time, situation, Appropriate for age. Historical: - Allergies: 21:57 No Known Allergies; cm10 - Home Meds: 21:57 metformin 1,000 mg oral tablet 1 tab 2 times per day with meals [Active]; sertraline cm10 100 mg oral tablet 1 tab daily [Active]; simvastatin 20 mg oral tablet 1 tab every evening [Active]; lisinopril 5 mg oral tablet 1 tab daily [Active]; - PMHx: 21:57 Anxiety; diabetes mellitus; Hypertensive disorder; cm10 - Immunization history:: Adult Immunizations up to date. - Infectious Disease History:: Denies. - Social history:: Smoking status: unknown. - Family history:: not pertinent. Screenin/04 00:13 [facility] ED Fall Risk Assessment (Adult) History of falling in the last 3 months, ha1 including since admission No falls in past 3 months (0 pts) Confusion or Disorientation No (0 pts) Intoxicated or Sedated No (0 pts) Impaired Gait No (0 pts) Mobility Assist Device Used No (0 pt) Altered Elimination No (0 pt) Score/Fall Risk Level 0 - 2 = Low Risk Oriented to surroundings, Maintained a safe environment, Educated pt \T\ family on fall prevention, incl call for assistance when getting out of bed, Hourly rounding (assess needs \T\ fall precautionary measures) done. Abuse screen: Denies threats or abuse. Denies injuries from another. Nutritional screening: No deficits noted. Tuberculosis screening: No symptoms or risk factors identified. Assessment: 01/15 22:01 General: Appears comfortable, Behavior is cooperative, anxious. Pain: Denies pain. ha1 Neuro: Level of Consciousness is awake, alert, obeys commands, Oriented to person, place, time, situation. Cardiovascular: Capillary refill < 3 seconds Patient's skin is warm and dry. Respiratory: Airway is patent Respiratory effort is even, unlabored, Respiratory pattern is regular, symmetrical. GI: No signs and/or symptoms were reported involving the gastrointestinal system. Abdomen is round non-distended. 22:01 Cardiovascular: Reports palpitations. : No signs and/or symptoms were reported ha1 regarding the genitourinary system. Derm: No signs and/or symptoms reported regarding the dermatologic system. Skin is pink, warm \T\ dry. Musculoskeletal: Circulation, motion, and sensation intact. Range of motion: intact in all extremities. 23:51 Reassessment: Patient appears in no apparent distress at this time. No changes from vc1 previously documented assessment. Patient and/or family updated on plan of care and expected duration. Pain level reassessed. 01/16 00:37 Reassessment: Patient and/or family updated on plan of care and expected duration. Pain ha1 level reassessed. Patient is alert, oriented x 3, equal unlabored respirations, skin warm/dry/pink. Patient states feeling better. Patient states symptoms have improved. Vital Signs: 01/15 21:57 BP 125 / 90; Pulse 99; Resp 18; Temp 98.5; Pulse Ox 97% on R/A; Weight 102.06 kg; cm10 Height 5 ft. 11 in. ; Pain 0/10; 22:45 BP 120 / 84; Pulse 89; Resp 17 S; Pulse Ox 99% on R/A; ha1 23:50 BP 104 / 77; Pulse 91; Resp 14; Pulse Ox 97% ; vc1 01/16 00:37 BP 115 / 88; Pulse 87; Resp 18 S; Pulse Ox 97% on R/A; ha1 01/15 21:57 Body Mass Index 31.38 (102.06 kg, 180.34 cm) cm10 01/15 21:57 Pain Scale: Adult cm10 ED Course: 01/15 21:37 Patient arrived in ED. jj6 21:42 Ousmane Leahy MD is Attending Physician. rt 21:57 Triage completed. cm10 22:00 Arm band placed on left wrist. Patient placed in waiting room. EKG completed in triage. cm10 Results shown to MD. 22:00 EKG done, by ED staff, reviewed by Osumane Leahy MD. cm10 22:42 Cristal Chester, RN is Primary Nurse. ha1 23:01 Patient has correct armband on for positive identification. Placed in gown. Bed in low ha1 position. Call light in reach. Side rails up X 1. Adult w/ patient. 23:01 Provided Education on: PLAN OF CARE . Client placed on continuous cardiac and pulse ha1 oximetry monitoring. NIBP monitoring applied. school lunch monitor on. 23:10 No provider procedures requiring assistance completed. Inserted saline lock: 20 gauge ha1 in right antecubital area, using aseptic technique. Blood collected. Flushed with 10 mL NS. 23:10 Patient maintains SpO2 saturation greater than 95% on room air. ha1 23:11 Basic Metabolic Panel Sent. ha1 23:11 CBC with Diff Sent. ha1 23:11 LFT's Sent. ha1 23:11 Magnesium Sent. ha1 23:11 Troponin HS Sent. ha1 01/16 00:41 IV discontinued, intact, bleeding controlled, No redness/swelling at site. Pressure ha1 dressing applied. Administered Medications: No medications were administered Medication: 00:41 VIS not applicable for this client. ha1 Outcome: 00:02 Discharge ordered by MD. rt 00:41 Discharged to home ambulatory, with family, ha1 00:41 Condition: stable 00:41 Discharge instructions given to patient, family, Instructed on discharge instructions, follow up and referral plans. Demonstrated understanding of instructions, follow-up care, 00:42 Patient left the ED. ha1 Signatures: Sade Morrissey j6 Vinita Rosado RN RN 1 Cristal Chester RN RN 1 Ousmane Leahy MD MD rt Emilia Caro RN RN cm10 Corrections: (The following items were deleted from the chart) 01/15 23:56 23:50 BP 131 / 75; Pulse 69bpm; Resp 14bpm; Pulse Ox 98%; vc1 vc1
[2025-01-16 02:59] VITALS: TEMP 98.5
[2025-01-16 03:05] VITALS: O2SAT 97
[2025-01-16 03:06] VITALS: BP 115/88
[2025-01-16 03:13] LABS: ALT/SGPT 20 U/L (16-61); AST/SGOT 11 U/L (15-37); Albumin 3.9 g/dL (3.4-5.0); Alkaline Phosphatase 103 U/L (45-117); BUN Blood Urea Nitrogen 14 mg/dL (7-18); Bicarbonate 26 mEq/L (21-32); Bilirubin Total 0.5 mg/dL (0.2-1.0); Glucose Level 155 mg/dL (74-106); Magnesium 2.2 mg/dL (1.6-2.4); Potassium 4.1 mEq/L (3.5-5.1); Protein, Total 7.6 g/dL (6.4-8.2); Sodium Level 137 mEq/L (136-145)
[2025-01-16 03:48] LABS: Anion Gap 10.1 mEq/L (5.0-15.0); Bilirubin Direct < 0.2 mg/dL (0-0.2); Bilirubin Indirect, Calculated 0.3 mg/dL (0.2-0.8)
[2025-01-16 03:49] LABS: Troponin High Sensitivity < 3.0 pg/mL (<58.9)
== END 2025-01-16 00:42 | disposition home or self-care (01) ==
LOC: ER 21:33
DX: R00.2 Palpitations (principal); I10 Essential (primary) hypertension; F41.9 Anxiety disorder, unspecified; E11.9 Type 2 diabetes mellitus without complications
CPT/HCPCS: 36415; 80048; 80076; 83735; 84443; 84484; 85025; 93005; 99284